=== PATIENT | male | born 1990 | race Caucasian/White ===

== ENCOUNTER 2020-11-12 11:51 | Emergency (ER) | payer SELFPAY ==
[2020-11-12 12:02] VITALS: BP 106/72; PULSE 66; TEMP 98.7; BMI 30.5
[2020-11-12] MEDS ORDERED: KETOROLAC TROMETHAMINE 30 MG/1 ML VIAL IM ONE (12:12)
[2020-11-12] MEDS ORDERED: KETOROLAC TROMETHAMINE 30 MG/1 ML VIAL ONE (12:13)
== END 2020-11-12 12:25 | disposition home or self-care (01) ==
LOC: JERFT 11:51
PROC: 3E023GC Introduction of Other Therapeutic Substance into Muscle, Percutaneous Approach (ICD-10-PCS; principal; 2020-11-12)
DX: K08.89 Other specified disorders of teeth and supporting structures (principal)
CPT/HCPCS: 99284-25